=== PATIENT | male | born 1980 | race American Indian/Alaskan Native ===

== ENCOUNTER 2021-06-24 15:26 | Emergency (ER) | payer SELFPAY ==
[2021-06-24 18:12] VITALS: BP 121/86
[2021-06-24] MEDS ORDERED: ONDANSETRON 4 MG ODT TAB PO ONE (22:10)
--- NOTE | 2021-06-24 22:13 | Emergency Department Report ---
ED General Adult HPI - General Chief complaint: Weakness Stated complaint: WEAKNESS Time Seen by Provider: 06/24/21 21:57 Source: patient Mode of arrival: Ambulatory Limitations: No Limitations - History of Present Illness Initial comments: 41-year-old male who has a history of dextrocardia but no other past medical history presents to the ER today with complaints of nausea, generalized weakness and chills. Patient states that symptoms started about a week ago. He started with chills and since then his started with generalized weakness, nausea and he did vomit once today. He states that he has had "a light cough" intermittently and some nasal congestion but no runny nose or sore throat. He denies any associate abdominal pain, diarrhea, chest pain, shortness of breath, syncope, focal weakness or fever He denies any known ill contacts. He states that he did recently come back from [place] visiting family but he has not traveled out of the country recently. He has not been vaccinated against COVID-19. He has not taken a COVID-19 test since has been sick. MD Complaint: Nausea/weakness/chills -: week(s) (1) - Related Data Previous Rx's Medication Instructions Recorded Last Taken Type Ondansetron [Zofran Odt] 4 mg PO Q8HR #10 tab.rapdis 06/25/21 Unknown Rx Allergies Allergy/AdvReac Type Severity Reaction Status Date / Time No Known Allergies Allergy Verified 06/24/21 18:13 ED Review of Systems ROS: Stated complaint: WEAKNESS Other details as noted in HPI Comment: All other systems reviewed and negative Constitutional: weakness. denies: chills, diaphoresis, fever, malaise Eyes: denies: eye pain, eye discharge, vision change ENT: congestion. denies: ear pain, throat pain, dental pain, hearing loss, epistaxis Respiratory: cough. denies: shortness of breath, SOB with exertion, SOB at rest Gastrointestinal: nausea. denies: abdominal pain, vomiting, diarrhea, constipation, hematemesis, hematochezia Genitourinary: denies: urgency, dysuria, frequency, hematuria, discharge, testicular pain, testicular mass Musculoskeletal: denies: back pain, joint swelling, arthralgia Skin: denies: rash, lesions, change in color, change in hair/nails, pruritus Neurological: denies: headache, weakness, numbness, paresthesias, confusion, abnormal gait, vertigo Psychiatric: denies: anxiety, depression, auditory hallucinations, visual hallucinations, homicidal thoughts, suicidal thoughts Hematological/Lymphatic: denies: easy bleeding, swollen glands ED Past Medical Hx - Past Medical History Previous Medical History?: No - Surgical History Past Surgical History?: No - Medications Home Medications: Home Medications Medication Instructions Recorded Confirmed Last Taken Type Ondansetron [Zofran Odt] 4 mg PO Q8HR #10 tab.rapdis 06/25/21 Unknown Rx ED Physical Exam - General Limitations: No Limitations General appearance: alert, in no apparent distress - Head Head exam: Present: atraumatic, normocephalic, normal inspection - Eye Eye exam: Present: normal appearance, PERRL, EOMI Pupils: Present: normal accommodation - ENT ENT exam: Present: normal exam, mucous membranes moist - Neck Neck exam: Present: normal inspection, full ROM. Absent: meningismus - Respiratory Respiratory exam: Present: normal lung sounds bilaterally. Absent: respiratory distress, wheezes, rales, rhonchi - Cardiovascular Cardiovascular Exam: Present: regular rate, normal rhythm, normal heart sounds - GI/Abdominal GI/Abdominal exam: Present: soft. Absent: distended, tenderness, guarding, rebound - Back Exam Back exam: Present: normal inspection, full ROM - Neurological Exam Neurological exam: Present: alert, oriented X3, CN II-XII intact, normal gait - Psychiatric Psychiatric exam: Present: normal affect, normal mood - Skin Skin exam: Present: intact ED Course Vital Signs 06/24/21 18:11 Temperature 98.3 F Pulse Rate 85 Respiratory 18 Rate Blood Pressure 121/86 O2 Sat by Pulse 97 Oximetry ED Medical Decision Making - Lab Data Result diagrams: 06/24/21 22:48 06/24/21 22:48 Laboratory Tests 06/24/21 06/24/21 06/24/21 22:35 22:48 22:48 WBC 3.7 L RBC 5.08 H Hgb 15.5 H Hct 46.5 H MCV 91 MCH 31 MCHC 33 RDW 12.9 L Plt Count 195 Lymph % (Auto) 48.7 H [place] % (Auto) 11.7 H Eos % (Auto) 0.1 Baso % (Auto) 0.2 Lymph # (Auto) 1.8 [place] # (Auto) 0.4 Eos # (Auto) 0.0 Baso # (Auto) 0.0 Seg Neutrophils % 39.3 L Seg Neutrophils # 1.4 L Sodium 139 Potassium 3.9 Chloride 101.1 Carbon Dioxide 25 Anion Gap 17 BUN 10 Creatinine 1.0 Estimated GFR > 60 BUN/Creatinine Ratio 10 Glucose 119 H Calcium 8.6 Magnesium 2.00 Total Bilirubin 0.40 AST 26 ALT 28 Alkaline Phosphatase 70 Total Protein 6.9 Albumin 4.4 Albumin/Globulin Ratio 1.8 Lipase 44 Urine Color Yellow Urine Turbidity Clear Urine pH 6.0 Ur Specific [place] 1.020 Urine Protein <15 mg/dl Urine Glucose (UA) Neg Urine Ketones Neg Urine Blood Neg Urine Nitrite Neg Urine Bilirubin Neg Urine Urobilinogen < 2.0 Ur Leukocyte Esterase Neg Urine WBC (Auto) 1.0 Urine RBC (Auto) < 1.0 U Epithel Cells (Auto) < 1.0 Urine Mucus Few - Medical Decision Making 41-year-old male who has a history of dextrocardia but no other past medical history presents to the ER today with complaints of nausea, generalized weakness and chills. Patient states that symptoms started about a week ago. He started with chills and since then his started with generalized weakness, nausea and he did vomit once today. He states that he has had "a light cough" intermittently and some nasal congestion but no runny nose or sore throat. He denies any associate abdominal pain, diarrhea, chest pain, shortness of breath, syncope, focal weakness or fever He denies any known ill contacts. He states that he did recently come back from [place] visiting family but he has not traveled out of the country recently. He has not been vaccinated against COVID-19. He has not taken a COVID-19 test since has been sick. All labs reviewed and no significant abnormalities noted. Patient sitting comfortably on the chair, playing on his tablet. He is not toxic or ill-appear ing. He denies any significant distress. Is not significantly dehydrated. He is neurologically intact with a normal gait. Chest is clear to auscultation. Abdomen is soft and nontender. His vital signs are stable. Discussed all lab results with patient. Informed her that symptoms could be viral related, I did recommend that he get a COVID-19 test but at this time there is no indication for any additional emergent testing or treatment or admission to the hospital. Patient expressed understanding for instructions and agree with plan. Patient was stable at time of discharge. Critical care attestation.: If time is entered above; I have spent that time in minutes in the direct care of this critically ill patient, excluding procedure time. ED Disposition Clinical Impression: Generalized weakness, Nausea, Viral illness Disposition: 01 HOME / SELF CARE / HOMELESS Is pt being admited?: No Does the pt Need Aspirin: No Condition: Stable Instructions: Nausea and Vomiting, Adult, [id number], Viral Illness, Adult, Weakness Additional Instructions: I recommend that you take the Zofran as prescribed to help with any nausea and vomiting. Increase your water intake. I do recommend that you get an outpatient COVID-19 test as this could be the cause of your symptoms. Follow-up with the primary care doctor listed in your discharge instructions or or your own primary care doctor. Return to the ER if your symptoms changes or worsens in any way. Prescriptions: Ondansetron [Zofran Odt] 4 mg PO Q8HR #10 tab.rapdis Referrals: PRIMARY MD CRYSTAL [Primary Care Provider] - 3-5 Days CHIP CARO MD [Staff Physician] - 3-5 Days Forms: Work/School Release Form(ED) Time of Disposition: 00:04
[2021-06-24 22:46] LABS: Bilirubin,Urine NEG (Negative); Blood,Urine NEG (Negative); Color,Urine Yellow (Yellow); Mucus,Urine FEW /HPF; Protein,Urine <15 mg/dL mg/dL (Negative); RBC,Urine < 1.0 /HPF (0.0-6.0); Urobilinogen,Urine < 2.0 mg/dL (<2.0)
[2021-06-24 23:19] LABS: Basophils % (Auto) 0.2 % (0.0-1.8); Eosinophils % (Auto) 0.1 % (0.0-4.3); Hematocrit 46.5 % (35.5-45.6); Hemoglobin 15.5 gm/dl (11.8-15.2); Lymphocytes # (Auto) 1.8 K/mm3 (1.2-5.4); Lymphocytes % (Auto) 48.7 % (13.4-35.0); Mean Corpuscular HGB Conc 33 % (32-34); Mean Corpuscular Volume 91 fl (84-94); Monocytes # (Auto) 0.4 K/mm3 (0.0-0.8); Monocytes % (Auto) 11.7 % (0.0-7.3); Platelet Count 195 K/mm3 (140-440); Red Blood Count 5.08 M/mm3 (3.65-5.03); Red Cell Distribution Width 12.9 % (13.2-15.2)
[2021-06-24 23:38] LABS: Alanine Aminotransferase 28 units/L (7-56); Albumin 4.4 g/dL (3.9-5); BUN/Creatinine Ratio 10; Blood Urea Nitrogen 10 mg/dL (9-20); Calcium 8.6 mg/dL (8.4-10.2); Hemolysis Index 8
== END 2021-06-25 00:22 | disposition home or self-care (01) ==
LOC: ED 15:26
DX: M62.81 Muscle weakness (generalized) (principal); R11.0 Nausea; B34.9 Viral infection, unspecified
CPT/HCPCS: 36415; 80053; 81001; 83690; 83735; 85025; 99283; J3490; Q0162